=== PATIENT | female | born 1945 | race Two or more races ===

== ENCOUNTER 2018-05-17 20:56 | Emergency (ER) | payer OTHER ==
[2018-05-17 21:04] VITALS: TEMP 97.8; BMI 30.9
--- NOTE | 2018-05-17 21:35 | PDOC ---
History of Present Illness - General Chief Complaint: Blood Pressure Problem Stated Complaint: HYPERTENSION, VOMITING Time Seen by Provider: 05/17/18 21:35 - History of Present Illness Initial Comments: 05/17/18 21:50 The patient is a 72 year old female with a history of HTN, HLD, DM who presents for evaluation of elevated blood pressure and vomiting. The patient notes that she had a mild headache 1 day ago that self-resolved. However, she notes that throughout the day today her blood pressures have been elevated with associated nausea and 3 episodes of non-bilious, non-bloody vomiting prompting her presentation to the ED for evaluation. She notes that she does not currently have a headache and otherwise denies fevers, chills, SOB, chest pain, numbness, tingling, weakness, abdominal pain, or changes with urination or bowel movements. Past History - Past Medical History Allergies/Adverse Reactions: Allergies Allergy/AdvReac Type Severity Reaction Status Date / Time No Known Drug Allergies Allergy Verified 05/17/18 21:04 Home Medications: Ambulatory Orders Aspirin [ASA -] 325 mg PO DAILY 05/17/18 Atorvastatin Ca [Lipitor] 40 mg PO HS 05/17/18 Gabapentin 100 mg PO DAILY 05/17/18 Metformin HCl [Glucophage] 1,000 mg PO BID 05/17/18 Olmesartan Medoxomil [Benicar (Nf)] 40 mg PO DAILY 05/17/18 Pioglitazone HCl [Actos] 30 mg PO DAILY 05/17/18 Valsartan [Diovan] 40 mg PO DAILY #30 tablet 05/18/18 Anemia: No Asthma: Yes Cancer: No Cardiac Disorders: No CVA: Yes (2003 NO RESIDUAL EFFECT) COPD: No CHF: No Dementia: No Diabetes: Yes GI Disorders: No Disorders: No HTN: Yes Hypercholesterolemia: Yes Liver Disease: No Seizures: No Thyroid Disease: No - Surgical History Abdominal Surgery: No Appendectomy: No Cardiac Surgery: No Cholecystectomy: No Lung Surgery: No Neurologic Surgery: No Orthopedic Surgery: No - Suicide/Smoking/Psychosocial Hx Smoking History: Never smoked Have you smoked in the past 12 months: No If you are a former smoker, when did you quit?: 25 years ago Information on smoking cessation initiated: No Hx Alcohol Use: No Drug/Substance Use Hx: No Substance Use Type: None Hx Substance Use Treatment: No Review of Systems - Review of Systems Comments:: 05/17/18 21:55 Constitutional: No fevers, chills, fatigue, malaise HEENT: No Rhinorrhea, nasal congestion, visual changes Cardiovascular: No chest pain, syncope, palpitations, lightheadedness Respiratory: No Cough, SOB, Hemoptysis, Gastrointestinal: Nausea, vomiting. No Abdominal pain, Constipation, Diarrhea, Melena Genitourinary: No Dysuria, Frequency, Urgency, Hesitancy, Hematuria, Flank pain Musculoskeletal: No Myalgia, arthralgia Skin: No rashes, itching, bruising, pallor Neurologic: Headache. No Dizziness, Numbness, Weakness, or Tingling Psychiatric: No Hallucinations. No SI or HI *Physical Exam - Vital Signs Last Vital Signs Temp Pulse Resp BP Pulse Ox 97.8 F 98 H 16 207/73 H 100 05/17/18 21:02 05/17/18 21:02 05/17/18 21:02 05/17/18 21:02 05/17/18 21:02 - Physical Exam Comments: 05/17/18 21:56 General Appearance: Nourished. No Apparent Distress HEENT: EOMI, MAXINE. No Pharyngeal Erythema, Tonsillar Exudate, Tonsillar Erythema Neck: No Cervical Lymphadenopathy Respiratory/Chest: Lungs Clear, Normal Breath Sounds. No Crackles, Rales, Rhonchi, Wheezing Cardiovascular: Regular Rhythm, Regular Rate. 3/6 systolic murmur noted on exam. No Gallops, Rubs Gastrointestinal/Abdominal: Normal Bowel Sounds, Soft. No Guarding, Rebound, Tenderness Musculoskeletal: No CVA Tenderness Extremity: Normal Capillary Refill Integumentary: Normal Color, Dry, Warm Neurologic: sheet metal welder II-XII NML intact, Fully Oriented, Alert, Normal Mood/Affect, Normal Response, Motor Strength 5/5. Moderate Sedation - Procedure Monitoring Vital Signs: Procedure Monitoring Vital Signs Temperature 97.8 F 05/17/18 21:02 Pulse Rate 98 H 05/17/18 21:02 Respiratory Rate 16 05/17/18 21:02 Blood Pressure 207/73 H 05/17/18 21:02 O2 Sat by Pulse Oximetry (%) 100 05/17/18 21:02 ED Treatment Course - LABORATORY CBC & Chemistry Diagram: 05/18/18 03:50 05/17/18 22:40 Medical Decision Making - Medical Decision Making 05/17/18 21:56 The patient is a 72 year old female with a history of HTN, HLD, DM who presents for evaluation of elevated blood pressure and vomiting. Differential includes but is not limited to: ACS, UTI, Viral Syndrome, Hypertension, Infectious, Metabolic Derangement. Given the patient's history and physical exam, we will obtain a cbc, cmp, troponin, ekg, chest plain film to evaluate further. The patient does not have a headache currently and has a normal physical exam and we do not believe she requires further imaging at this time. It is possible her elevated blood pressure is due to the patient's episodes of vomiting throughout the day. We will treat with iv fluids and zofran and continue to monitor and reassess while here in the ED. 05/17/18 23:39 The patient has persistent hypertension and vomiting. We will obtain a gallbladder US and head CT to evaluate further and treat the patient with benadryl and reglan. She continues to deny any headache and has a normal physical exam. 05/18/18 01:53 CBC demonstrates an elevated wbc to 13. CMP, tropnin, ua is unremarkable. Chest plain film is unremarkable. The patient reports improvement in her nausea and vomiting after zofran and reglan however she continues to remain hypertensive. We will treat with 25mg of lopressor and reassess. Should the patient continue to remain hypertensive, she will require obs admission. The patient was signed out to the night time pending reassessment and dispo. *DC/Admit/Observation/Transfer Diagnosis at time of Disposition: HTN (hypertension) - Discharge Dispostion Disposition: HOME Condition at time of disposition: Stable - Prescriptions Prescriptions: Valsartan [Diovan] 40 mg PO DAILY #30 tablet - Referrals Referrals: Steven Russell MD [Primary Care Provider] - - Patient Instructions Printed Discharge Instructions: DI for High Blood Pressure, How to Monitor Your Blood Pressure at Home Additional Instructions: You were evaluated today in the ER for your high blood pressure and vomiting. Your blood pressure decreased after additional blood pressure medications. We discussed the merits of an LP to investigate your symptoms and you declined this test. Please follow-up with primary care provider in AM for further outpatient evaluation. Return to ED if any return of symptoms, fever, chills, altered mental status, or other concerning symptoms. - Post Discharge Activity
[2018-05-17] MEDS ORDERED: SODIUM CHLORIDE 1,000 ML IV STA (21:49)
[2018-05-17] MEDS ORDERED: ONDANSETRON 4 MG/2 ML VIAL IVPUSH ONE (21:49)
[2018-05-17] MEDS ORDERED: ONDANSETRON 4 MG/2 ML VIAL ONE (22:53)
[2018-05-17 23:19] LABS: BASO % 0.2 % (0-2.0); EOS % 0.9 % (0-4.5); HEMATOCRIT 38.1 % (32.4-45.2); LYMPH % 5.9 % (8-40); MCH 31.6 pg (25.7-33.7); MCHC 34.2 g/dl (32.0-36.0); MEAN CELL VOLUME 92.2 fl (80-96); MEAN PLT VOLUME 9.6 fl (7.5-11.1); MONO % 6.3 % (3.8-10.2); NEUT % 86.7 % (42.8-82.8); PLATELET COUNT 244 K/MM3 (134-434); RBC 4.13 M/mm3 (3.60-5.2); RDW 13.5 % (11.6-15.6); WHITE BLOOD COUNT 13.1 K/mm3 (4.0-10.0)
[2018-05-17 23:34] LABS: URINE APPEARANCE CLEAR; URINE BILIRUBIN NEGATIVE (<2.0 mg/dL); URINE COLOR LTYELLOW; URINE GLUCOSE (UA) NEGATIVE (NEGATIVE); URINE KETONE TRACE (NEGATIVE); URINE LEUK ESTERASE NEGATIVE (NEGATIVE); URINE NITRITE NEGATIVE (NEGATIVE); URINE PROTEIN 1+ (NEGATIVE); URINE UROBILINOGEN NEGATIVE mg/dL (0.2-1.0)
[2018-05-17] MEDS ORDERED: METOCLOPRAMIDE HCL INJECTION 10 MG/2 ML VIAL IVPUSH ONE (23:38)
--- NOTE | 2018-05-17 23:43 | PDOC ---
Attending Attestation - Resident Resident Name: Keegan Long - ED Attending Attestation I have performed the following: I have examined & evaluated the patient, The case was reviewed & discussed with the resident, I agree w/resident's findings & plan, Exceptions are as noted - HPI HPI: 05/17/18 23:38 72-year-old female presents with nausea, vomiting today. She said her blood pressure at home and found that his systolic was 200 and this is much higher than she typically is. She said yesterday the right side of her head felt heavy , but she has no current headache. She had no episodes of confusion, extremity weakness or difficulty speaking or visual changes. Her blood pressure this moment he isn't 192/72, her left arm and 191/54 in rt right arm - Physicial Exam PE: 05/17/18 23:43 WELL-developed, alert 72-year-old female with complaint of persistent nausea and vomiting Head normocephalic, atraumatic. Neck is supple, no bruits. Lungs clear to auscultation. CVS regular rate and rhythm S1, S2 Abdomen. No rebound, protuberant, soft. No flank pain. Skin is warm and dry. Neuro alert and oriented 3, no gross focal neural deficits Psych appropriate - Medical Decision Making 05/17/18 23:44 72-year-old female with nausea, vomiting and complaint of elevated blood pressure was brought in by ambulance. Upon presentation. She had no gross focal neural deficits and was alert and oriented and easily following commands. Blood pressure remains slightly elevated. Patient denies shortness of breath or chest pain or fever or chills. EKG History of present illness the patient states that yesterday her head felt "heavy" and she had a headache that resolved without any intervention differential diag includes gastritis, GERD, ASC, cholecystitis, subdural hematoma 05/18/18 01:20 ct scan head negative for any acute intracranial pathology 05/18/18 01:57 Abdominal ultrasound findings. Aorta and inferior vena cava appear normal. It is echogenic suggesting fatty infiltration. Gallbladder is normal. Common bile duct is 3 mm Pancreas is normal. Right kidney is normal. Impression no acute findings 05/18/18 01:58 She received Zofran and had still some nausea and vomiting, but after she received the Reglan and Benadryl her symptoms resolved. She still remains hypertensive and was given additional beta alok
[2018-05-17] MEDS ORDERED: METOCLOPRAMIDE HCL INJECTION 10 MG/2 ML VIAL ONE (23:44)
[2018-05-17 23:46] LABS: EPI CELLS RARE /HPF (FEW); URINE HYALINE CAST 9 /lpf; URINE MUCUS RARE
[2018-05-18 01:08] LABS: ALK PHOS 133 U/L (45-117); BLOOD UREA NITROGEN 15 mg/dL (7-18); CALCIUM 9.7 mg/dL (8.5-10.1); CHLORIDE 102 mmol/L (98-107); CREATININE 0.9 mg/dL (0.55-1.3); GLUCOSE,RANDOM 141 mg/dL (74-106); POTASSIUM 4.6 mmol/L (3.5-5.1); SGOT/AST 22 U/L (15-37); SGPT/ALT 27 U/L (13-61); SODIUM 137 mmol/L (136-145); TOT PROT 7.9 g/dl (6.4-8.2)
[2018-05-18 01:13] LABS: ANION GAP 9 MMOL/L (8-16); BILIRUBIN,TOTAL 0.6 mg/dL (0.2-1); CO2 27 mmol/L (21-32)
[2018-05-18] MEDS ORDERED: METOPROLOL TARTRATE 25 MG TABLET (FP) PO ONE (01:37)
--- NOTE | 2018-05-18 01:51 | PDOC ---
*Physical Exam - Vital Signs Last Vital Signs Temp Pulse Resp BP Pulse Ox 97.8 F 98 H 16 207/73 H 100 05/17/18 21:02 05/17/18 21:02 05/17/18 21:02 05/17/18 21:02 05/17/18 21:02 ED Treatment Course - LABORATORY CBC & Chemistry Diagram: 05/18/18 03:50 05/17/18 22:40 - ADDITIONAL ORDERS Additional order review: Laboratory Results 05/17/18 05/17/18 23:00 22:40 Sodium 137 Potassium 4.6 Chloride 102 Carbon Dioxide 27 Anion Gap 9 BUN 15 Creatinine 0.9 Creat Clearance w eGFR > 60 Random Glucose 141 H Calcium 9.7 Total Bilirubin 0.6 AST 22 ALT 27 Alkaline Phosphatase 133 H Creatine Kinase 133 Troponin I < 0.02 Total Protein 7.9 Albumin 4.0 Urine Color Ltyellow Urine Appearance Clear Urine pH 5.0 Ur Specific [place] 1.014 Urine Protein 1+ H Urine Glucose (UA) Negative Urine Ketones Trace H Urine Blood 1+ H Urine Nitrite Negative Urine Bilirubin Negative Urine Urobilinogen Negative Ur Leukocyte Esterase Negative Urine WBC (Auto) 1 Urine RBC (Auto) 2 Ur Epithelial Cells Rare Hyaline Casts 9 Urine Mucus Rare 05/17/18 22:40 RBC 4.13 MCV 92.2 MCHC 34.2 RDW 13.5 MPV 9.6 Neutrophils % 86.7 H D Lymphocytes % 5.9 L D Monocytes % 6.3 Eosinophils % 0.9 Basophils % 0.2 - Medications Given in the ED: ED Medications Discontinued Medications Generic Name Dose Route Start Last Admin Trade Name Freq PRN Reason Stop Dose Admin Diphenhydramine HCl 25 mg 05/17/18 23:38 05/17/18 23:50 Benadryl Injection - IVPUSH 05/17/18 23:39 25 mg ONCE ONE Administration Sodium Chloride 1,000 mls @ 1,000 mls/hr 05/17/18 21:49 05/17/18 22:40 Normal Saline - IV 05/17/18 22:48 1,000 mls/hr ASDIR STA Administration Metoclopramide HCl 10 mg 05/17/18 23:38 05/17/18 23:50 Reglan Injection - IVPUSH 05/17/18 23:39 10 mg ONCE ONE Administration Ondansetron HCl 4 mg 05/17/18 21:49 05/17/18 23:00 Zofran Injection IVPUSH 05/17/18 21:50 4 mg ONCE ONE Administration Medical Decision Making - Medical Decision Making 05/18/18 01:[address] Long. Ms. Alvares is a 72 yo female w/ pmh of HTN, HLD, DM who presents for evaluation of elevated BP and vomiting. Patient currently pending repeat evaluation after treatment with BP medications for decrease of grossly elevated blood pressure. 05/18/18 03:14 Discussed possible LP with patient given "head heaviness" patient reported yesterday and continued elevated BP w/ N/V. Patient declined at this time. Diovan 40mg added for BP control 05/18/18 04:42 Patient BP decreased to 160's systolic. Patient reporting improvement of all symptoms at this time. Discussed strict return precautions. Patient will follow- up with PCP in morning for further evaluation. No concern for acute process at this time. Discharging to home. Laboratory Results - last 24 hr 05/17/18 05/17/18 05/17/18 22:40 22:40 23:00 WBC 13.1 H RBC 4.13 Hgb 13.0 Hct 38.1 MCV 92.2 MCH 31.6 MCHC 34.2 RDW 13.5 Plt Count 244 D MPV 9.6 Absolute Neuts (auto) 11.4 H Neutrophils % 86.7 H D Lymphocytes % 5.9 L D Monocytes % 6.3 Eosinophils % 0.9 Basophils % 0.2 Nucleated RBC % 0 Sodium 137 Potassium 4.6 Chloride 102 Carbon Dioxide 27 Anion Gap 9 BUN 15 Creatinine 0.9 Creat Clearance w eGFR > 60 Random Glucose 141 H Calcium 9.7 Total Bilirubin 0.6 AST 22 ALT 27 Alkaline Phosphatase 133 H Creatine Kinase 133 Troponin I < 0.02 Total Protein 7.9 Albumin 4.0 Urine Color Ltyellow Urine Appearance Clear Urine pH 5.0 Ur Specific [place] 1.014 Urine Protein 1+ H Urine Glucose (UA) Negative Urine Ketones Trace H Urine Blood 1+ H Urine Nitrite Negative Urine Bilirubin Negative Urine Urobilinogen Negative Ur Leukocyte Esterase Negative Urine WBC (Auto) 1 Urine RBC (Auto) 2 Ur Epithelial Cells Rare Hyaline Casts 9 Urine Mucus Rare 05/18/18 05/18/18 03:50 03:50 WBC 12.9 H RBC 4.07 Hgb 13.0 Hct 37.5 MCV 92.2 MCH 31.9 MCHC 34.6 RDW 13.6 Plt Count 203 MPV 9.0 Absolute Neuts (auto) 11.6 H Neutrophils % 90.0 H Lymphocytes % 3.9 L D Monocytes % 5.5 Eosinophils % 0.4 Basophils % 0.2 Nucleated RBC % 0 Sodium Potassium Chloride Carbon Dioxide Anion Gap BUN Creatinine Creat Clearance w eGFR Random Glucose Calcium Total Bilirubin AST ALT Alkaline Phosphatase Creatine Kinase 101 Troponin I < 0.02 Total Protein Albumin Urine Color Urine Appearance Urine pH Ur Specific [place] Urine Protein Urine Glucose (UA) Urine Ketones Urine Blood Urine Nitrite Urine Bilirubin Urine Urobilinogen Ur Leukocyte Esterase Urine WBC (Auto) Urine RBC (Auto) Ur Epithelial Cells Hyaline Casts Urine Mucus *DC/Admit/Observation/Transfer Diagnosis at time of Disposition: HTN (hypertension) Qualifiers: Hypertension type: unspecified Qualified Code(s): I10 - Essential (primary) hypertension - Discharge Dispostion Disposition: HOME Condition at time of disposition: Stable - Prescriptions Prescriptions: Valsartan [Diovan] 40 mg PO DAILY #30 tablet - Referrals Referrals: Steven Russell MD [Primary Care Provider] - - Patient Instructions Printed Discharge Instructions: DI for High Blood Pressure, How to Monitor Your Blood Pressure at Home Additional Instructions: You were evaluated today in the ER for your high blood pressure and vomiting. Your blood pressure decreased after additional blood pressure medications. We discussed the merits of an LP to investigate your symptoms and you declined this test. Please follow-up with primary care provider in AM for further outpatient evaluation. Return to ED if any return of symptoms, fever, chills, altered mental status, or other concerning symptoms. - Post Discharge Activity
[2018-05-18] MEDS ORDERED: METOPROLOL TARTRATE 25 MG TABLET (FP) ONE (02:24)
--- NOTE | 2018-05-18 03:07 | PDOC ---
*Physical Exam - Vital Signs Last Vital Signs Temp Pulse Resp BP Pulse Ox 97.8 F 98 H 16 207/73 H 100 05/17/18 21:02 05/17/18 21:02 05/17/18 21:02 05/17/18 21:02 05/17/18 21:02 Heart Score/ECG Review - ECG Impressions Normal ECG: Yes Non-specific ST Elevation: No Ischemic Changes: No Bradycardia: No Torsades leon Pointes: No WPW: No ED Treatment Course - LABORATORY CBC & Chemistry Diagram: 05/18/18 03:50 05/17/18 22:40 - ADDITIONAL ORDERS Additional order review: Laboratory Results 05/17/18 05/17/18 23:00 22:40 Sodium 137 Potassium 4.6 Chloride 102 Carbon Dioxide 27 Anion Gap 9 BUN 15 Creatinine 0.9 Creat Clearance w eGFR > 60 Random Glucose 141 H Calcium 9.7 Total Bilirubin 0.6 AST 22 ALT 27 Alkaline Phosphatase 133 H Creatine Kinase 133 Troponin I < 0.02 Total Protein 7.9 Albumin 4.0 Urine Color Ltyellow Urine Appearance Clear Urine pH 5.0 Ur Specific [place] 1.014 Urine Protein 1+ H Urine Glucose (UA) Negative Urine Ketones Trace H Urine Blood 1+ H Urine Nitrite Negative Urine Bilirubin Negative Urine Urobilinogen Negative Ur Leukocyte Esterase Negative Urine WBC (Auto) 1 Urine RBC (Auto) 2 Ur Epithelial Cells Rare Hyaline Casts 9 Urine Mucus Rare 05/17/18 22:40 RBC 4.13 MCV 92.2 MCHC 34.2 RDW 13.5 MPV 9.6 Neutrophils % 86.7 H D Lymphocytes % 5.9 L D Monocytes % 6.3 Eosinophils % 0.9 Basophils % 0.2 - Medications Given in the ED: ED Medications Discontinued Medications Generic Name Dose Route Start Last Admin Trade Name Freq PRN Reason Stop Dose Admin Diphenhydramine HCl 25 mg 05/17/18 23:38 05/17/18 23:50 Benadryl Injection - IVPUSH 05/17/18 23:39 25 mg ONCE ONE Administration Sodium Chloride 1,000 mls @ 1,000 mls/hr 05/17/18 21:49 05/17/18 22:40 Normal Saline - IV 05/17/18 22:48 1,000 mls/hr ASDIR STA Administration Metoclopramide HCl 10 mg 05/17/18 23:38 05/17/18 23:50 Reglan Injection - IVPUSH 05/17/18 23:39 10 mg ONCE ONE Administration Metoprolol Tartrate 25 mg 05/18/18 01:37 05/18/18 02:32 Lopressor - PO 05/18/18 01:38 25 mg ONCE ONE Administration Ondansetron HCl 4 mg 05/17/18 21:49 05/17/18 23:00 Zofran Injection IVPUSH 05/17/18 21:50 4 mg ONCE ONE Administration Medical Decision Making - Medical Decision Making 05/18/18 03:05 Pt comes with head heaviness, which is gone now. Her BP is high. 200s systolic. Daughter states that her BP is usually controlled with no meds.. We offered her a CT head to r/o infection or bleed. Family is refusing the CT scan. Pt's CXR and head CT and labs normal; UA normal. Slight blood; BUN/Cr normal and cardiac enzyme normal 05/18/18 04:26 We will repeat a 2nd cardiac enzyme; pt will be started on diovan *DC/Admit/Observation/Transfer Diagnosis at time of Disposition: HTN (hypertension) - Discharge Dispostion Disposition: HOME Condition at time of disposition: Stable Decision to Admit order: No - Prescriptions Prescriptions: Valsartan [Diovan] 40 mg PO DAILY #30 tablet - Referrals Referrals: Steven Russell MD [Primary Care Provider] - - Patient Instructions Printed Discharge Instructions: DI for High Blood Pressure, How to Monitor Your Blood Pressure at Home - Post Discharge Activity
[2018-05-18] MEDS ORDERED: VALSARTAN 40 MG TABLET (FP) PO ONE (03:15)
[2018-05-18] MEDS ORDERED: VALSARTAN 80 MG TABLET (UD) ONE (03:24)
[2018-05-18 03:29] VITALS: BP 167/55; PULSE 84
[2018-05-18 04:09] LABS: BASO % 0.2 % (0-2.0); EOS % 0.4 % (0-4.5); HEMATOCRIT 37.5 % (32.4-45.2); LYMPH % 3.9 % (8-40); MCH 31.9 pg (25.7-33.7); MCHC 34.6 g/dl (32.0-36.0); MEAN CELL VOLUME 92.2 fl (80-96); MONO % 5.5 % (3.8-10.2); PLATELET COUNT 203 K/MM3 (134-434); RBC 4.07 M/mm3 (3.60-5.2); RDW 13.6 % (11.6-15.6); WHITE BLOOD COUNT 12.9 K/mm3 (4.0-10.0)
--- NOTE | 2018-05-18 09:38 | EKG ---
Test Reason : Blood Pressure : / mmHG Vent. Rate : 091 BPM Atrial Rate : 091 BPM P-R Int : 160 ms QRS Dur : 084 ms QT Int : 364 ms P-R-T Axes : 047 018 073 degrees QTc Int : 447 ms NORMAL SINUS RHYTHM WHEN COMPARED WITH ECG OF 10-APR-2013 18:00, T WAVE VARIATION Confirmed by PRASHANTH SALINAS MD ([id number]) on 05/18/2018 9:38:43 AM Referred By: Confirmed By:PRASHANTH SALINAS MD
== END 2018-05-18 05:13 | disposition home or self-care (01) ==
LOC: JER 20:56
PROC: 3E033GC Introduction of Other Therapeutic Substance into Peripheral Vein, Percutaneous Approach (ICD-10-PCS; principal; 2018-05-17)
PROC: 3E0337Z Introduction of Electrolytic and Water Balance Substance into Peripheral Vein, Percutaneous Approach (ICD-10-PCS; 2018-05-17)
DX: I10 Essential (primary) hypertension (principal); E78.5 Hyperlipidemia, unspecified; E11.9 Type 2 diabetes mellitus without complications
CPT/HCPCS: 36415; 70450-TC; 71045-TC-FY; 76705-TC; 80053; 81003; 81015; 82550; 84484; 85025; 93005; 93010; 99282-25; J7030

== ENCOUNTER 2020-06-16 04:19 | Day surgery (SDC) | payer OTHER ==
[2020-06-12 15:56] VITALS: BMI 25.7
[2020-06-16] MEDS ORDERED: DEXAMETHASONE SOD PHOSPHATE/PF 10 MG/ML SDV ONE (09:44)
[2020-06-16] MEDS ORDERED: IOHEXOL 180 MG/1 ML ML IJ ONE (09:49)
[2020-06-16] MEDS ORDERED: LIDOCAINE 1% P/F 10 MG/ML VIAL INF ONE (09:49)
[2020-06-16] MEDS ORDERED: DEXAMETHASONE SOD PHOSPHATE 10 MG/1 ML VIAL IM ONE (09:49)
[2020-06-16 10:36] VITALS: TEMP 97.8
[2020-06-16 11:01] VITALS: BP 130/60; PULSE 70
== END 2020-06-16 11:01 | disposition home or self-care (01) ==
LOC: JASU-SURG 04:19
PROVIDERS: ATTEND Pain Medicine Pain Medicine
PROC: 3E0R3BZ Introduction of Anesthetic Agent into Spinal Canal, Percutaneous Approach (ICD-10-PCS; 2020-06-16)
PROC: 3E0R33Z Introduction of Anti-inflammatory into Spinal Canal, Percutaneous Approach (ICD-10-PCS; principal; 2020-06-16 14:00)
DX: M54.16 Radiculopathy, lumbar region (principal)
CPT/HCPCS: 76000-TC-FY; J1100

== ENCOUNTER → 2020-07-11 | Day surgery (SDC) | payer OTHER | END | disposition home or self-care (01) | LOC: JRADIR 11:07 | PROVIDERS: ATTEND Internal Medicine Endocrinology, Diabetes & Metabolism | PROC: 0G9H3ZX Drainage of Right Thyroid Gland Lobe, Percutaneous Approach, Diagnostic (ICD-10-PCS; principal; 2020-07-11) | DX: E04.1 Nontoxic single thyroid nodule (principal) | CPT/HCPCS: 76942; 88173; 88305-TC ==

== ENCOUNTER 2023-05-07 15:38 | Emergency (ER) | payer OTHER ==
[2023-05-07 16:03] VITALS: BP 140/59; PULSE 61; RESP 16; TEMP 98; BMI 23.1
[2023-05-07 20:22] LABS: BASO % 0.4 % (0-2.0); EOS % 5.2 % (0-4.5); HEMATOCRIT 32.6 % (32.4-45.2); HEMOGLOBIN 10.8 GM/dL (10.7-15.3); LYMPH % 36.4 % (8-40); MCH 30.3 pg (25.7-33.7); MEAN CELL VOLUME 91.7 fl (80-96); MEAN PLT VOLUME 8.4 fl (7.5-11.1); MONO % 8.6 % (3.8-10.2); NEUT % 49.4 % (42.8-82.8); PLATELET COUNT 302 10^3/uL (134-434); RBC 3.55 M/mm3 (3.60-5.2); WHITE BLOOD COUNT 8.1 K/mm3 (4.0-10.0)
[2023-05-07 20:31] LABS: POTASSIUM 5.3 mmol/L (3.5-5.1)
[2023-05-07 20:32] LABS: CALCIUM 9.8 mg/dL (8.5-10.1)
[2023-05-07 20:34] LABS: ALBUMIN 3.3 g/dl (3.4-5.0); BLOOD UREA NITROGEN 31.8 mg/dL (7-18)
[2023-05-07 20:37] LABS: BILIRUBIN,TOTAL 0.1 mg/dL (0.2-1); CREATININE 1.2 mg/dL (0.55-1.3); TOT PROT 6.7 g/dl (6.4-8.2)
[2023-05-07 23:41] LABS: POTASSIUM 4.8 mmol/L (3.5-5.1)
[2023-05-07 23:43] LABS: BLOOD UREA NITROGEN 36.4 mg/dL (7-18); CALCIUM 9.6 mg/dL (8.5-10.1)
[2023-05-07 23:47] LABS: CREATININE 1.1 mg/dL (0.55-1.3)
== END 2023-05-08 00:18 | disposition home or self-care (01) ==
LOC: JER 15:38
DX: L02.211 Cutaneous abscess of abdominal wall (principal)
CPT/HCPCS: 36415; 74177-TC; 80048; 80053; 85025; 87070; 87186; 87205; 99285-25; Q9967

== ENCOUNTER 2023-12-24 14:12 | Emergency (ER) | payer OTHER ==
[2023-12-24 14:26] VITALS: RESP 18; BMI 26.5
[2023-12-24 17:35] VITALS: BP 154/68; PULSE 98; TEMP 98.7
[2023-12-24] MEDS ORDERED: ACETAMINOPHEN 500 MG TABLET (FP) ONE (19:40)
[2023-12-24] MEDS: ACETAMINOPHEN 500 MG TABLET (FP) PO ONE (19:41)
== END 2023-12-24 21:30 | disposition home or self-care (01) ==
LOC: JER 14:12 → JERFT 14:12 → JER 21:30
DX: M25.561 Pain in right knee (principal); M25.461 Effusion, right knee; W01.0XXA Fall on same level from slipping, tripping and stumbling without subsequent striking against object, initial encounter
CPT/HCPCS: 73562-TC-RT-FY; 73700-TC-RT; 99284-25